=== PATIENT | male | born 1955 | race American Indian/Alaskan Native ===

== ENCOUNTER 2021-05-08 11:06 | Outpatient (CLI) | payer MEDICARE ==
--- NOTE | 2021-05-08 13:42 | XRay Report ---
CHEST 2 VIEWS INDICATION: Chest pain. COMPARISON: None FINDINGS: Support devices: None. Heart: Within normal limits. Lungs/pleura: No acute air space or interstitial disease. No pneumothorax. Additional findings: None. IMPRESSION: No acute findings. Unremarkable chest films. CERVICAL SPINE 5 VIEWS INDICATION: NECK PAIN. COMPARISON: None. IMPRESSION: There is straightening of the normal cervical lordosis. No subluxation, fracture or bone lesion is detected. 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 Mild diffuse facet arthropathy is also evident. The oblique images are of limited quality but multile celio neural foraminal narrowing is suspected. C4-5 and C5-6 appear to be the most affected levels. Pr evertebral soft tissues are unremarkable. Signer Name: Chilo Deleon Jr, MD Signed: 05/08/2021 1:37 PM Workstation Name: [id number]
--- NOTE | 2021-05-08 18:15 | Electrocardiograph Report ---
[facility] Test Date: 2021-05-08 Test Time: 11:59:38 Pat Name: STERLING OLIVERA Department: Room: Gender: M [employer] Teacher: ALEX : 1955 Requested By: ANTOINE NARVAEZ Order Number: [id number] Reading MD: Iman Cunningham Measurements Intervals [place] Rate: 62 P: 63 SD: 132 QRS: 58 QRSD: 94 T: 78 QT: 436 QTc: 442 Interpretive Statements Sinus rhythm Supraventricular ectopy Nonspecific ST abnormality suggests early repolarization No previous ECG available for comparison Electronically Signed On 05-08-2021 18:15:16 EDT by Iman Cunningham
== END 2021-05-08 11:07 | disposition home or self-care (01) ==
LOC: EDBD 11:06 → CARD 11:06
PROVIDERS: ATTEND Internal Medicine
DX: M47.812 Spondylosis without myelopathy or radiculopathy, cervical region (principal); R07.9 Chest pain, unspecified
CPT/HCPCS: 71046; 72050; 93005